=== PATIENT | male | born 1985 | race Caucasian/White ===

== ENCOUNTER → 2025-06-15 11:04 | Outpatient (BNVA) | payer OTHER, SELFPAY | PROVIDERS: Visit Provider Internal Medicine | DX: S51.812A Laceration without foreign body of left forearm, initial encounter (principal); W31.82XA Contact with other commercial machinery, initial encounter | CPT/HCPCS: 12002; 99203 ==

== ENCOUNTER → 2025-06-18 08:02 | Outpatient (BNVA) | payer OTHER, SELFPAY | PROVIDERS: Visit Provider Internal Medicine | DX: S51.812A Laceration without foreign body of left forearm, initial encounter (principal); W31.82XA Contact with other commercial machinery, initial encounter | CPT/HCPCS: 99213 ==

== ENCOUNTER → 2025-06-22 11:16 | Outpatient (BNVA) | payer OTHER, SELFPAY | PROVIDERS: Visit Provider Internal Medicine | DX: Z48.02 Encounter for removal of sutures (principal); S51.812A Laceration without foreign body of left forearm, initial encounter; W31.82XA Contact with other commercial machinery, initial encounter; Z02.79 Encounter for issue of other medical certificate | CPT/HCPCS: 99212; 99213 ==